=== PATIENT | female | born 1985 | race Caucasian/White ===

== ENCOUNTER → 2020-02-14 09:20 | Outpatient (CLI) | payer OTHER, SELFPAY ==
--- NOTE | ~2020-02-14 | XR_ITS ---
EXAMINATION: XR knee RT 3V EXAM DATE: 02/14/2020 09:33 INDICATION: No known recent injury provided at this time. Pain of the right knee. TECHNIQUE: Three projections of the right knee. Comparison is made to prior examination from 01/21/20 10. FINDINGS: No evidence osteochondral defect or joint body in the right knee joint. There are no acut e fractures or dislocations identified. There is no subcutaneous gas. The soft tissue is unremarkab le. There are no radiopaque foreign bodies. Mild patellar lateral tilt subluxation. Joint spaces a re maintained, no bony productive changes. IMPRESSION: Mild right patellar lateral tilt and subluxation. Reviewed, dictated and finalized at location A. YMAN
== END ==
PROVIDERS: PCP Internal Medicine; Visit Provider Clinical Nurse Specialist
DX: S83.011A Lateral subluxation of right patella, initial encounter (principal)
CPT/HCPCS: 73562

== ENCOUNTER 2022-02-11 07:56 | Outpatient (CLI) | payer OTHER, SELFPAY | END 2022-02-11 07:57 | disposition home or self-care (01) | PROVIDERS: PCP Internal Medicine; Visit Provider Obstetrics & Gynecology | DX: N83.209 Unspecified ovarian cyst, unspecified side (principal); Z01.818 Encounter for other preprocedural examination | CPT/HCPCS: 36415; 86850; 86900; 86901 ==

== ENCOUNTER 2022-02-14 00:31 | Day surgery (SDC) | payer OTHER, SELFPAY ==
[2022-02-06 09:26] VITALS: BMI 23.2
--- NOTE | 2022-02-06 09:44 | SUR.PREOP ---
Report to the Outpatient Waiting Room, entrance under the green pavilion located off [facility], at time 0600 on date 02/14/2022. Planned Procedure Time: 0730. Time changes happen often and if your time is changed the preop area will call you the afternoon before. - You and your visitor will be asked to self-screen and do not enter if you have any COVID symptoms. - We encourage only one visitor and NO visitors under age 16 are allowed at this time. Your visitor will receive communication by the phone number that is given day of service. - The patient visitor is requested to social distance or may leave the building when not with patient due to restrictions. - A mask is required within the hospital. Patients may have clear liquids (water, carbonated beverages, clear teas, apple juice) until 3 hours prior to surgery with a maximum of 20 ounces- 0430. - No food from midnight until time of surgery - Infants may have breast milk until 4 hours before surgery, formula 6 hours prior to surgery. - Children will be allowed to drink immediately following surgery. If applicable, please bring a bottle or sippy cup to assist with drinking. Juice, water, soda, and popsicles are readily available. For infants on formula, please bring formula the day of surgery. Pacifiers are allowed. Take the following medications with a SIP of water the morning of surgery: N/A Medications to discontinue per physician N/A Date to take last dose N/A Please no make-up, nail burundian, hairspray, perfume, deodorant, or body powder the day of surgery. No jewelry (including any body piercings) or valuables the day of surgery, leave them at home. Please take a shower or bath the night before, or the morning of, surgery with an antibacterial soap. Wear comfortable, loose fitting clothing. Children are encouraged to wear pajamas. - Jewelry must be removed prior to entering the operating room. Rings and piercings that are not removed may be cut off. - The hospital will not accept responsibility for valuables. - Please leave all valuables, including medications, at home the day of surgery. If you are going home after surgery, a licensed cpr ambulance driver must drive you home. - NO public transportation without another adult. - We recommend that an adult stay with you for 24 hours following discharge. - We also recommend that you do not drive, make important decision, drink alcoholic beverages, or take any drugs that were not prescribed by your health care provider for at least 24 hours after your discharge time. For Pediatric surgeries, we recommend two adults accompany the child home. Follow any additional instructions given to you from your surgeon. If you or anyone in your household have experienced Covid symptoms in the past week, please notify your surgeon or the nurse liaison at the phone number below for possible testing. Telephone instructions given to ____Filiberto and asked if any additional questions and then verbalized understanding. Patient advised to call surgeon office or pre surgery nurse liaison [phone] if any additional questions.
--- NOTE | 2022-02-12 12:23 | P.HP_ITS ---
H&P: HPI History of Present Illness Date/Time: 02/12/22 12:23 Chief Complaint: Pelvic pain with right ovarian cyst Narrative: Is a 36 with a dermoid cyst found at the imaging center. She had previously seen Dr. Roberson reviewed risks benefits the screws aspiration bleeding transfusion infection perforation injury to bowel bladder ureters other with need for open laparotomy the possibility of removal of the entire ovary was undertaken if this is can be shelled out she received the [employer] handout entitled laparoscopy. She had all questions answered. She asked to proceed PMFSH Past Medical History Medical History Broken foot Surgical History Surgical History H/O adenoidectomy 2000 History of appendectomy History of tonsillectomy 2000 [place] teeth removed Family History Family History Grandparent Breast cancer Dementia Alzheimer disease Acute myocardial infarction Social History Social History Smoking status: Never smoker Alcohol intake: current Drinks per week: 6 Substance use: former Substance use type: marijuana Last use: 1999 Spiritual care concerns: No Meds Home Medications and Allergies Home Medications Medication Instructions Recorded Confirmed Type epinephrine 0.3 mg/0.3 mL 0.3 mg (0.3 mL) IM ONCE #2 ea 02/13/20 02/14/20 Rx injection, auto-injector (EpiPen 2-Milo) cetirizine 10 mg tablet (Zyrtec) 10 mg PO DAILY 02/06/22 02/06/22 History Allergies Allergy/AdvReac Type Severity Reaction Status Date / Time cefaclor Allergy Unknown Hives Verified 02/06/22 09:25 Cephalosporins Allergy Unknown Hives Verified 02/06/22 09:25 Bumble Bee Allergy Mild Swelling Uncoded 02/06/22 09:25 Exam Const: General: cooperative, healthy appearing and comfortable Nutritional Appearance: average body habitus Orientation/consciousness: oriented to person, oriented to place and oriented to time Resp: Effort & Inspection: normal respiratory effort Cardio: Rate: regular rate Rhythm: regular rhythm Heart sounds: S1 normal heart sound present and S2 normal heart sound present GI: Inspection: normal to inspection : Speculum Exam - Vagina: normal appearance of the vagina Speculum Exam - Cervix: normal appearance of the cervix Bimanual exam- vagina & uterus: normal palpation and non-tender Bimanual Exam- Adnexa, other: Adnexal mass present on the right Assessment and Plan Assessment and plan (1) Complex cyst of right ovary: Code(s): N83.291 - Other ovarian cyst, right side Status: Acute Plan Laparoscopic right cystectomy with possible right salpingo-oophorectomy
--- NOTE | 2022-02-13 13:49 | WPDANESEPPF ---
Anes - Initial Pre Proc Eval Procedure: Operation Date: 02/14/22 07:30 Proposed Procedures p Laparoscopic Right Ovarian Cystectomy - Galindo Tan MD Date/Time: 02/13/22 13:49 Surgeon: Galindo Tan MD Pre Op Diagnosis: Rt Ovarian Cyst, Pelvic Pain Patient Data Age: 36 Gender: F Height: 1.7 m Weight: 67.27 kg Allergies Allergy/AdvReac Type Severity Reaction Status Date / Time cefaclor Allergy Unknown Hives Verified 02/06/22 09:25 Cephalosporins Allergy Unknown Hives Verified 02/06/22 09:25 Bumble Bee Allergy Mild Swelling Uncoded 02/06/22 09:25 Home Medications Medication Instructions Recorded Confirmed Type epinephrine 0.3 mg/0.3 mL 0.3 mg (0.3 mL) IM ONCE #2 ea 02/13/20 02/14/20 Rx injection, auto-injector (EpiPen 2-Milo) cetirizine 10 mg tablet (Zyrtec) 10 mg PO DAILY 02/06/22 02/06/22 History hydrocodone 5 mg-acetaminophen 325 1 tablet PO Q4H PRN pain #30 tabs 02/14/22 Rx mg tablet Patient hx anesthesia problems: none Family hx anesthesia problems: none Results Review: All pre-operative results and documents have been reviewed as part of the pre-operative evaluation. [facility] Past Medical History Medical History Broken foot Surgical History Surgical History H/O adenoidectomy 2000 History of appendectomy History of tonsillectomy 2001 [place] teeth removed Family History Family History Grandparent Breast cancer Dementia Alzheimer disease Acute myocardial infarction Social History Social History Smoking status: Never smoker Alcohol intake: current Drinks per week: 6 Substance use: former Substance use type: marijuana Last use: 1999 Living arrangements: with family Spiritual care concerns: No Anes - Eval Final PreProcedure Day of Procedure 02/13/22 13:49 Patient weight: normal Heart: regular rate and rhythm Lungs: clear to auscultation and normal air movement Airway: Mallampati scale class II Neurological: alert and oriented Last oral intake: >/= 8 hours ASA classification: I Emergent: no Anesthetic plan: proceed Anesthesia type and monitoring: general ETT Results Review: All pre-operative results and documents have been reviewed as part of the pre-operative evaluation. Informed Consent: The patient's anesthetic plan and its attendant risks and benefits were discussed with the patient/family/POA. Questions were solicited and answers provided to the satisfaction of the patient/family/POA.
[2022-02-14] VITALS (8 sets, daily range): BP systolic 92–136; BP diastolic 48–75; PULSE 54–81; RESP 12–16; TEMP 36.7–37.3; O2SAT 99–100
[2022-02-14] MEDS: ACETAMINOPHEN 500 MG TABLET 1000 MG PO (06:35)
[2022-02-14] MEDS: KETOROLAC 15 MG/ML VIAL (*BKC) IV PUSH (06:36)
[2022-02-14] MEDS: LACTATED RINGERS 1,000 ML 30 ML IV CONT ×2 (06:43→08:19)
--- NOTE | 2022-02-14 06:50 | WPDHPUPDATE1 ---
History and Physical Update Update Date/Time: 02/14/22 06:50 History and Physical has been reviewed, including an updated exam of the patient. There are NO changes in the patient's condition. Risks, benefits, and alternatives have been discussed and questions answered. Patient agrees to proceed with procedure.
--- NOTE | 2022-02-14 08:07 | P.OP_ITS ---
Procedure Note - Detailed Date of Procedure 02/14/22 Pre-op Diagnosis Rt Ovarian Cyst, Pelvic Pain Post-op Diagnosis Same Procedure Performed Laparoscopic right salpingo-oophorectomy Surgeon Galindo Tan MD Anesthesia General Indications a 36-year-old female with suspected dermoid cyst on the right Findings enlarged right ovary consistent with complex cyst. Normal-appearing uterus ovary and tube on the opposite side. The appendix was not seen. Liver and gallbladder edge appeared within normal limits Description of Procedure patient was prepped draped in normal sterile fashion placed in dorsal lithotomy position. Under excellent general trach anesthesia weighted speculum placed in posterior fornix vagina. Anterior lip of the cervix grasped with single-tooth tenaculum and the Moore's cannula inserted to the cervix attached to the single- tooth to be used later for uterine manipulation. After emptying the bladder clear urine the weighted speculum was removed. Gloves were changed and infr aumbilical incision made. Veress needle passed in the abdomen. Abdomen filled with CO2 gas to 15mm Hg. The 5mm trocar advanced under direct visualization with the Optiview and no injury seen. Patient placed in Trendelenburg and a suprapubic incision made. The 5mm trocar advanced under direct visualization seen. A right lower quadrant incision made in the 10mm trocar advanced under direct visualization assuring no injury. The right ovary and tube were completely made up of this mass. The infundibulopelvic structure was then skeletonized. This was clamped, burned, cut with the LigaSure and placed in Endo-Catch and passed out the lower quadrant and pieces. Photo documentation the remainder the pelvis undertaken. The pedicles appeared dry the instruments removed. Gas removed from the abdomen. The incisions closed with 4 Monocryl and glue. Patient was awakened and went to recovery in satisfactory condition. All sponge, needle, instrument counts were correct. There were no immediate complications Estimated Blood Loss 5 Drains No Packing No Pathology Yes Complications No immediate complications Condition Stable Disposition PACU
--- NOTE | 2022-02-14 08:47 | SUR.PHASEI ---
0846: Simple mask removed.
== END 2022-02-14 10:20 | disposition home or self-care (01) ==
PROVIDERS: PCP Internal Medicine; Visit Provider Obstetrics & Gynecology
PROC: (CPT 49320; principal; 2022-02-14 07:30)
DX: D27.0 Benign neoplasm of right ovary (principal)
CPT/HCPCS: 58661; 36415; 86850; 86900; 86901; 88305; A9270; J0330; J1885; J2250; J2270; J2405; J2704; J7030; J7120

== ENCOUNTER 2023-04-10 14:47 | Emergency (ER) | payer OTHER, SELFPAY ==
--- NOTE | ~2023-04-10 | XR_ITS ---
EXAM: XR ankle RT min 3V, XR foot RT min 3V DATE: 04/10/2023 15:12 (accession [id number]), 04/10/2023 15:13 (accession [id number]) HISTORY: fell going down rock wall 4 days ago;pain med/dorsal Rt foot . COMPARISON: None available. FINDINGS: Normal mineralization. No fracture or dislocation. No lytic or blastic lesion. Mild scatte red degenerative changes. No erosion or periosteal change. Soft tissues within normal limits. IMPRESSION: No acute osseous finding in the right ankle or right foot. Reviewed, dictated and finalized at location K. EMS ADMIN IMPRESSION: No acute osseous finding in the right ankle or right foot.
[2023-04-10 15:01] VITALS: BP 113/77; PULSE 92; RESP 16; TEMP 36.6; O2SAT 98
--- NOTE | 2023-04-10 15:04 | ED.LOWEXIN ---
HPI - Extremity Injury (Lower) General Chief Complaint: Extremity Injury, Lower Stated Complaint: Injured Ankle Source: patient, RN notes reviewed and old records reviewed Mode of arrival: ambulatory Limitations: no limitations History of Present Illness HPI Narrative: 29-year-old female presents to [facility] with complaints right foot and ankle pain this started Thursday after patient fell while indoor rock climbing. Patient states thinks hit ankle on climbing peg, patient did not hit the ground. Patient states taking ibuprofen for pain which does help but patient worried about taking too much ibuprofen. MD complaint: ankle injury and foot injury Onset (ago): day(s) (5) Related Data Home Medications Medication Instructions Recorded Confirmed No Home Medications 04/10/23 04/10/23 Allergies Allergy/AdvReac Type Severity Reaction Status Date / Time cefaclor Allergy Unknown Hives Verified 04/10/23 14:56 Cephalosporins Allergy Unknown Hives Verified 04/10/23 14:56 Bumble Bee Allergy Mild Swelling Uncoded 04/10/23 14:56 Review of Systems Constitutional: Constitutional: Reports no additional constitutional complaints, Denies body ache(s), Denies chills, Denies fatigue, Denies fever(s) and Denies headache(s) Eyes: Eyes: Reports no additional eye complaints and Denies blurry vision ENT: Reports system reviewed and no additional complaints, except as documented, Denies vertigo, Denies dizziness, Denies ear discharge, Denies otalgia, Denies facial pain, Denies headache(s), Denies nasal congestion, Denies nasal discharge, Denies sinus pain, Denies sinus pressure and Denies sore throat Cardiovascular: Cardiovascular: Reports no additional cardiovascular complaints, Denies chest pain, Denies chest pain at rest, Denies rapid heart rate and Denies dyspnea Respiratory: Respiratory: Reports no additional respiratory complaints, Denies chest congestion, Denies cough, Denies pain on inspiration, Denies pain with cough and Denies dyspnea Gastrointestinal: Gastrointestinal: Denies abdominal pain, Denies diarrhea, Denies nausea and Denies vomiting Musculoskeletal: Musculoskeletal: Reports arthralgias Comments: right Ankle/foot pain Integumentary/Breasts: Skin/Breast: Denies rash Neurologic: Reports system reviewed and no additional complaints, except as documented, Denies vertigo, Denies dizziness and Denies headache(s) Endocrine: Endocrine: Denies fatigue PMFSH Past Medical History Medical History Broken foot Surgical History Surgical History H/O adenoidectomy 2000 History of appendectomy History of tonsillectomy 2000 [place] teeth removed Family History Family History Grandparent Breast cancer Dementia Alzheimer disease Acute myocardial infarction Social History Social History Smoking status: Never smoker Alcohol intake: current Drinks per week: 6 Substance use: former Substance use type: marijuana Last use: 1999 Living arrangements: with family Spiritual care concerns: No Comments At the time of my signature, I reviewed and agree with the nursing past medical, surgical, social, and family history. There is no relevant family history pertinent to the patient complaint. Exam Const: General: cooperative, healthy appearing, no acute distress and well nourished Nutritional Appearance: well nourished Orientation/consciousness: patient oriented x3 Limitations: no limitations HENMT: Head: normal to inspection and normocephalic Ears: external ears normal, TM's normal bilaterally, mastoids normal and Abnormal EAC present Face/Nose/Sinus: normal facial exam Face and sinus: normal facial exam Mouth: Yes Normal oral and palatal mucosa present, Yes oropharynx normal an
== END 2023-04-10 15:29 | disposition home or self-care (01) ==
PROVIDERS: Emergency Provider Registered Nurse
DX: S93.401A Sprain of unspecified ligament of right ankle, initial encounter (principal); X58.XXXA Exposure to other specified factors, initial encounter; Y93.31 Activity, mountain climbing, rock climbing and wall climbing
CPT/HCPCS: 73610; 73630; 99213; G0463

== ENCOUNTER 2023-04-26 13:14 | Emergency (ER) | payer OTHER, SELFPAY ==
--- NOTE | 2023-04-26 13:29 | ED.EYEPROB ---
HPI - Eye Problem General Chief complaint: Eye Problems Stated complaint: CLOUDY SPOT ON EYE Time Seen by Provider: 04/26/23 13:52 Source: patient and RN notes reviewed Mode of arrival: ambulatory Limitations: no limitations History of Present Illness HPI Narrative: 37-year-old female presents concern for clot a spot in her left eye, reports left eye is irritated has watery drainage. Reports it happened when she woke up this morning. Reports she sleeps in her contact lenses, she took her contact lens out this morning when she had the pain. She denies vision changes MD chief complaint: eye pain Related Data Allergies Allergy/AdvReac Type Severity Reaction Status Date / Time cefaclor Allergy Unknown Hives Verified 04/26/23 13:26 Cephalosporins Allergy Unknown Hives Verified 04/26/23 13:26 Bumble Bee Allergy Mild Swelling Uncoded 04/26/23 13:26 Review of Systems Review of Systems: CONSTITUTIONAL: Denies malaise, chills, sweats, or fever. EYES: Denies visual changes. Reports left eye redness, irritation, discharge. ENT: Denies rhinorrhea, congestion, sinus pain, otalgia or sore throat. SKIN: Denies rash or itching. NEUROLOGIC: Denies numbness, weakness, or headache. PSYCHIATRIC: Denies anxiety or depression. All systems reviewed & are unremarkable except as noted in HPI and below PMFSH Past Medical History Medical History Broken foot Surgical History Surgical History H/O adenoidectomy 2000 History of appendectomy History of tonsillectomy 2001 [place] teeth removed Family History Family History Grandparent Breast cancer Dementia Alzheimer disease Acute myocardial infarction Social History Social History Smoking status: Never smoker Alcohol intake: current Drinks per week: 6 Substance use: former Substance use type: marijuana Last use: 1999 Living arrangements: with family Spiritual care concerns: No Comments At time of signature, agree with nursing past medical, surgical, social and family history. There is no relevant family history pertinent to the presenting complaint Exam Narrative: GENERAL: Well-appearing, well-nourished, and in no acute distress. HEAD: Normocephalic, atraumatic. EYES: PERRLA, sclera clear, and EOMI. No nystagmus. Left conjunctivae clear, sclera mildly injected, corneal abrasion noted upon Wood's lamp exam, see note. Upper and lower eyelid unremarkable, no periorbital edema noted ENT: Nares clear, turbinates pink, no rhinorrhea or epistaxis. Mucous membranes moist. TM pearly frost with sharp light reflex bilaterally; no tragal tenderness. NECK: Supple. CHEST: No respiratory distress. Speaks in full sentences. HEART: Regular rate and rhythm. SKIN: Warm, dry, no visible rash. NEURO: Alert and oriented x3. PSYCH: Normal mood and affect Course Course Emergency Course: Patient is aware of diagnosis, understands and agrees to treatment plan. Anticipatory guidance given. Patient agrees to follow-up as directed and is aware of reasons to seek care at the emergency department. Portions of this record may have been created with voice recognition software Level of Care: Express Care Visit Vital Signs Vital signs: Reviewed. Procedures Other Procedure Procedure 1: Other Procedure: Tetracaine 1 gtt instilled in left eye, fluorescein stain applied. Corneal abrasion noted upon cortés lamp exam at approximately 6 o'clock in relation to the pupil. Eye washed with NS 100 ml. No foreign bodies or Aroldo sign noted. MDM - Eye Problem MDM Narrative Medical decision making narrative: Consideration of the following conditions may be warranted for the presenting problem, they are not final diagnoses: Bacterial conjunctivitis, allergi
[2023-04-26 13:34] VITALS: BP 101/79; PULSE 86; RESP 16; TEMP 36.6; O2SAT 100
== END 2023-04-26 14:15 | disposition home or self-care (01) ==
PROVIDERS: Emergency Provider Nurse Practitioner
DX: S05.01XA Injury of conjunctiva and corneal abrasion without foreign body, right eye, initial encounter (principal); X58.XXXA Exposure to other specified factors, initial encounter
CPT/HCPCS: 99213; A9270; G0463

== ENCOUNTER 2025-01-10 09:02 | Emergency (ER) | payer OTHER, SELFPAY ==
[2025-01-10 09:18] VITALS: BP 113/77; PULSE 91; RESP 16; TEMP 36.7; O2SAT 96
--- NOTE | 2025-01-10 09:19 | ED.URI ---
HPI - URI/Sore Throat General Chief Complaint: Upper Respiratory Infection Stated Complaint: EYE DRAINAGE/LOSING VOICE/DRAINAGE/SNEEZE/COUGH Time Seen by Provider: 01/10/25 09:04 Source: patient Mode of arrival: ambulatory Limitations: no limitations History of Present Illness HPI Narrative: Joey is a 39-year-old female patient presenting to the clinic today with complaints of bilateral whitish green eye drainage, nasal congestion, loss of voice, sneezing, and coughing x2 days. She reports she developed the eye drainage yesterday. Denies any fevers, chills, or body aches. Has taken ibuprofen, Flonase, and her Claritin. Denies any shortness of breath or chest pain. Related Data Allergies Allergy/AdvReac Type Severity Reaction Status Date / Time cefaclor Allergy Unknown Hives Verified 01/10/25 09:13 Cephalosporins Allergy Unknown Hives Verified 01/10/25 09:13 Bumble Bee Allergy Mild Swelling Uncoded 04/26/23 13:26 Review of Systems Review of Systems: Pertinent positives per HPI. Patient denies any fever, chills, rash, headache, visual changes, dizziness, shortness of breath, chest pain, palpitations, nausea, vomiting, diarrhea, constipation, abdominal pain, or any urinary issues. COUNT INCLUDES THE [facility] Past Medical History Medical History Broken foot Surgical History Surgical History [place] teeth removed History of appendectomy H/O adenoidectomy 2000 History of tonsillectomy 2000 Family History Family History Grandparent Breast cancer Dementia Alzheimer disease Acute myocardial infarction Social History Social History Smoking status: Never smoker Alcohol intake: current Drinks per week: 6 Substance use: former Substance use type: marijuana Last use: 1999 Living arrangements: with family Spiritual care concerns: No Comments At the time of my signature, I reviewed and agree with the nursing past medical, surgical, social, and family history. There is no relevant family history pertinent to the patient complaint. Exam Narrative: General: Well-developed, well nourished, in no apparent distress Head: Normocephalic, atraumatic Eyes: Pupils equally round and reactive to light bilaterally, EOM intact, sclera and conjunctive injected with white mucopurulent discharge, lids normal Ears: TMs intact and clear, ear canals clear, no drainage, grossly hearing normal. Nose: Nares patent, clear nasal discharge, mild inflammation, no sinus tenderness. Mouth: Oral pharynx mildly red without lesions or masses, good dentition, MMM. Postnasal drip Neck: Supple, trachea midline, no enlargement of anterior or posterior cervical nodes, no thyroid masses or goiter palpable. Cardio: Regular rate and rhythm, s1 and s2 normal, no murmur appreciated. Resp: Clear to auscultation bilaterally, no rhonchi, rales, wheezing or rubs Course Course Emergency Course: Portions of this record may have been created with voice recognition software. Level of Care: Express Care Visit Vital Signs Vital signs: Vital Signs Temperature 36.7 C 01/10/25 09:18 Pulse Rate 91 01/10/25 09:18 Respiratory Rate 16 01/10/25 09:18 Blood Pressure 113/77 01/10/25 09:18 Pulse Oximetry 96 01/10/25 09:18 Temperature 36.7 C 01/10/25 09:18 Pulse Rate 91 01/10/25 09:18 Respiratory Rate 16 01/10/25 09:18 Blood Pressure 113/77 01/10/25 09:18 Pulse Oximetry 96 01/10/25 09:18 Oxygen Delivery Room Air 01/10/25 09:33 Vital signs reviewed MDM - URI/Sore Throat MDM Narrative Medical decision making narrative: At the time of visit patient is resting comfortably on the exam table. Patient appears to be nontoxic. Complaints of bilateral whitish green eye drainage, nasal congestion, loss of voice, sneezing, and coughing x2 days. She reports she developed the eye drainage yesterday. Denies any fevers, chills, or body aches. Has taken ibuprofen, Flonase, and her Claritin. Denies any shortness of breath or chest pain. On exam patient has TMs intact and clear, clear nasal drainage, bilateral as sclera and conjunctiva injected with white mucopurulent discharge, mild inflammation of the anterior turbinates, oral pharynx mildly red- postnasal drip, lung sounds are clear, heart rates regular rate and rhythm. COVID, flu, and strep test were ordered. Labs: COVID, influenza, and strep test were all negative in the clinic today. We will send strep for culture. Plan: I suspect patient has URI/pharyngitis/viral syndrome/viral conjunctivitis. Prescription for azelastine eyedrops was sent to the pharmacy. Recommend DayQuil/NyQuil for cold/flu symptoms. May take Sudafed as needed for nasal congestion. Supportive measures were discussed with the patient and they voiced understanding discharge instructions and agrees to treatment plan. Return precautions reviewed Differential Diagnosis Differential diagnosis: Likely upper respiratory infection, otitis media, sinusitis, viral infection, bronchitis, influenza, pharyngitis and other (COVID) Lab Data Labs: Lab Results 01/10/25 Range/Units 09:34 POC Influenza A Ag Negative (Negative) POC Influenza B Ag Negative (Negative) POC SARS CoV-2 Ag Negative (Negative) POC Grp A Strep Screen Negative (Negative) Discharge Plan Discharge Clinical Impression: Upper respiratory infection, Pharyngitis, Viral infection, Acute viral conjunctivitis of both eyes Patient Disposition: Home Condition: Stable Instructions: Antibiotic Form, Pharyngitis (ED), Viral Syndrome (ED), Cold Symptoms (ED), Conjunctivitis (ED) Additional Instructions: Take prescription medications only as prescribed-azelastine eyedrops May take Sudafed as needed for nasal congestion as per bottle directions May take [id number] DayQuil/NyQuil for cold/flu symptoms as directed Increase fluids and stay well hydrated May take Tylenol or motrin as directed on bottle for pain/fever May use Flonase 1 spray in each nare daily May take OTC antihistamines such as Zyrtec or Claritin daily as directed on bottle May apply Vicks vapor rub to chest to open sinuses Sinus rinses for congestion Cepacol spray, cough drops, throat lozenges, warm tea with honey/lemon, gargle salt water to soothe throat BRAT diet for diarrhea Clear liquids x 24 hours then advance as tolerated for nausea/vomiting Go to the ED if you develop a worsening in your condition- high fever not controlled by Tylenol or Motrin, dehydration, weakness, lethargy, shortness of breath, or chest pain. Follow up with your PCP in 3-5 days if symptoms persist. Patient Language: Malay Prescriptions: New azelastine 0.05 % drops 1 drp EACH EYE BID 7 Days Qty: 6 0RF No Action polymyxin B sulf-trimethoprim 10,000 unit- 1 mg/mL drops 1 drp LEFT EYE Q3H 7 Days Qty: 10 0RF Rx Instructions: while awake; do not exceed 6 doses in 24 hours Follow-up/Referrals: UNKNOWN,DOCTOR [Primary Care Provider] Stand Alone Forms: Work/School Release IP Time of Disposition: 09:37 Quality NIHSS Nursing Documentation ED NIHSS nursing documentation: reviewed/agree
[2025-01-10 09:36] LABS: EDCOVIDSCREEN Negative (Negative); EDINFLUASCREEN Negative (Negative); EDINFLUBSCREEN Negative (Negative); EDSTREPNEGPOS1 Negative (Negative)
== END 2025-01-10 09:52 | disposition home or self-care (01) ==
PROVIDERS: Emergency Provider Nurse Practitioner Family
DX: J06.9 Acute upper respiratory infection, unspecified (principal); J02.9 Acute pharyngitis, unspecified; B34.9 Viral infection, unspecified; H10.33 Unspecified acute conjunctivitis, bilateral; Z20.822 Contact with and (suspected) exposure to COVID-19
CPT/HCPCS: 87081; 87426; 87804; 87880; 99213; G0463